=== PATIENT | male | born 1980 | race Caucasian/White ===

== ENCOUNTER → 2019-04-20 | Outpatient (CLI) | payer OTHER ==
[2019-04-20 18:35] LABS: BASOPHILS ABSOLUTE AUTO 0.05 K/mm3 (0.00-0.23); BASOPHILS PERCENT AUTO 1 % (0-2); EOSINOPHILS ABSOLUTE AUTO 0.15 K/mm3 (0.00-0.68); EOSINOPHILS PERCENT AUTO 2 % (0-6); Hemoglobin 14.4 g/dL (13.5-17.5); IMMATURE GRAN ABSOLUTE AUTO 0.04 K/mm3 (0.00-0.10); IMMATURE GRAN PERCENT AUTO 0 % (0-1); LYMPHOCYTES ABSOLUTE AUTO 2.71 K/mm3 (0.84-5.20); LYMPHOCYTES PERCENT AUTO 27 % (21-46); MONOCYTES ABSOLUTE AUTO 0.84 K/mm3 (0.16-1.47); MONOCYTES PERCENT AUTO 8 % (4-13); Mean Corpuscular HGB 29.2 pg (26.0-34.0); Mean Corpuscular HGB Conc 33.5 g/dL (31.5-36.5); Mean Corpuscular Volume 87 fL (80-100); Mean Platelet Volume 12.2 fL (9.1-12.4); NEUTROPHILS PERCENT AUTO 62 % (41-73); Platelet Count 176 K/mm3 (150-400); RDW Coefficient Variation 13.1 % (11.7-14.2); RDW Standard Deviation 41.3 fL (35.1-46.3); Red Blood Cell Count 4.93 M/mm3 (4.30-5.90); White Blood Cell Count 9.99 K/mm3 (4.00-11.30)
[2019-04-20 18:48] LABS: Alanine Aminotransfer (ALT/SGP 32 U/L (12-78); Albumin, Blood 3.5 g/dL (3.4-5.0); Albumin/Globulin Ratio 0.8 (0.8-1.8); Alk Phos 95 U/L (40-126); Anion Gap 11 mmol/L (6-16); Aspartate Aminotrans (AST/SGOT 21 U/L (12-37); Bilirubin, Total 0.2 mg/dL (0.1-1.0); Blood Urea Nitrogen 47 mg/dL (8-24); Bun/Creatinine Ratio 18.7 (12.0-20.0); CO2, Blood 22 mmol/L (21-32); Calcium, Blood 9.3 mg/dL (8.5-10.1); Chloride, Blood 108 mmol/L (98-108); Creatinine, Blood 2.52 mg/dL (0.60-1.20); Globulin, Blood 4.5 g/dL (2.2-4.0); Glomerular Filtration Rate 28 (60-); Glucose, Blood 100 mg/dL (70-99); Magnesium, Blood 1.4 mg/dL (1.6-2.4); Potassium, Blood 4.9 mmol/L (3.5-5.5); Sodium, Blood 141 mmol/L (136-145); Troponin I <0.017 ng/mL (0.000-0.040)
== END | disposition home or self-care (01) ==
LOC: LAB EV 18:30 → LAB SHORT 18:30
PROVIDERS: Physician Assistant Medical
DX: R06.00 Dyspnea, unspecified (principal)
CPT/HCPCS: 80053; 83735; 84484; 85025

== ENCOUNTER → 2020-08-21 | Outpatient (CLI) | payer OTHER ==
[2020-08-23 14:37] LABS: CORONAVIRUS (COVID19) CSH-NRL Negative (Negative)
== END | disposition home or self-care (01) ==
LOC: LAB EV 09:14 → LAB SHORT 09:14
PROVIDERS: Physician Assistant
DX: J06.9 Acute upper respiratory infection, unspecified (principal); Z20.828 Contact with and (suspected) exposure to other viral communicable diseases
CPT/HCPCS: U0003

== ENCOUNTER 2021-02-10 15:56 | Emergency (ER) | payer OTHER ==
[~2021-02-10] VITALS: Ht 180.3 cm; Wt 131.5 kg
[2021-02-10] MEDS ORDERED: AMOCLA875 PO (18:21)
== END 2021-02-10 18:38 | disposition home or self-care (01) ==
LOC: ER 15:56
DX: S51.852A Open bite of left forearm, initial encounter (principal); S51.851A Open bite of right forearm, initial encounter; Z91.013 Allergy to seafood; Z23 Encounter for immunization; W54.0XXA Bitten by dog, initial encounter
CPT/HCPCS: 12001; 73090; 73120; 90471; 90714; 99283-25; A9270

== ENCOUNTER 2022-03-24 11:31 | Emergency (ER) | payer OTHER ==
[~2022-03-24] VITALS: Ht 180.3 cm; Wt 135.2 kg
[~2022-03-24 11:31] MED LIST: AMOCLA875 PO
[2022-03-24 12:22] LABS: BASOPHILS ABSOLUTE AUTO 0.04 K/mm3 (0.00-0.23); BASOPHILS PERCENT AUTO 0 % (0-2); EOSINOPHILS ABSOLUTE AUTO 0.01 K/mm3 (0.00-0.68); EOSINOPHILS PERCENT AUTO 0 % (0-6); Hematocrit 49.9 % (37.0-53.0); Hemoglobin 16.1 g/dL (13.5-17.5); IMMATURE GRAN ABSOLUTE AUTO 0.04 K/mm3 (0.00-0.10); IMMATURE GRAN PERCENT AUTO 0 % (0-1); LYMPHOCYTES ABSOLUTE AUTO 0.49 K/mm3 (0.84-5.20); LYMPHOCYTES PERCENT AUTO 4 % (21-46); MONOCYTES ABSOLUTE AUTO 0.75 K/mm3 (0.16-1.47); MONOCYTES PERCENT AUTO 6 % (4-13); Mean Corpuscular HGB 29.3 pg (26.0-34.0); Mean Corpuscular HGB Conc 32.3 g/dL (31.5-36.5); Mean Corpuscular Volume 91 fL (80-100); Mean Platelet Volume 12.5 fL (9.1-12.4); NEUTROPHILS ABSOLUTE AUTO 10.95 K/mm3 (1.96-9.15); NEUTROPHILS PERCENT AUTO 89 % (41-73); Platelet Count 152 K/mm3 (150-400); RDW Coefficient Variation 12.7 % (11.7-14.2); RDW Standard Deviation 42.5 fL (35.1-46.3); White Blood Cell Count 12.28 K/mm3 (4.00-11.30)
[2022-03-24 12:30] LABS: Albumin, Blood 3.5 g/dL (3.4-5.0); Albumin/Globulin Ratio 0.8 (0.8-1.8); Bilirubin, Total 0.6 mg/dL (0.1-1.0); Bun/Creatinine Ratio 14.6 (12.0-20.0); Calcium, Blood 9.2 mg/dL (8.5-10.1); Creatinine, Blood 3.09 mg/dL (0.60-1.20); Globulin, Blood 4.3 g/dL (2.2-4.0); Potassium, Blood 4.8 mmol/L (3.5-5.5); Total Protein, Blood 7.8 g/dL (6.4-8.2)
[2022-03-24] MEDS ORDERED: LISI20 PO (15:28)
[2022-03-24] MEDS ORDERED: ALLOPURINOL100 M1 PO (15:28)
[2022-03-24] MEDS ORDERED: AMLODIPINE BES2.5 MG PO (15:28)
[2022-03-24] MEDS ORDERED: Simvastatin20 MG PO (15:28)
[2022-03-24] MEDS ORDERED: FUROSEMIDE20 MG PO (15:29)
[2022-03-24] MEDS ORDERED: VITAMIN D33000 UNIT (15:30)
[2022-03-24] MEDS ORDERED: FISH OIL 1,2001 EAC7 PO (15:30)
[2022-03-24] MEDS ORDERED: ONDA4ODT MM (17:17)
[2022-03-24 18:47] LABS: Bun/Creatinine Ratio 14.2 (12.0-20.0); Calcium, Blood 8.1 mg/dL (8.5-10.1); Creatinine, Blood 3.18 mg/dL (0.60-1.20)
[2022-03-24 19:38] LABS: Source, Urine Clean Catch
[2022-03-24 19:42] LABS: Appearance, Urine Clear (Clear); Bilirubin, Urine Neg (Neg); Blood, Urine 3+ (Neg); Color, Urine Yellow (P-Yellow); Glucose Qualitative, Urine Neg (Neg); Ketones, Urine Neg (Neg); Leukocyte Esterase, Urine Neg (Neg); Nitrite, Urine Neg (Neg); Protein, Urine 3+ (Neg); Specific Gravity, Urine 1.015 (1.003-1.022); Urobilinogen, Urine NORM (Normal)
[2022-03-24 20:07] LABS: Hyaline Casts 0-2 /lpf (0-2)
[2022-03-24 20:09] LABS: Bacteria Mod /hpf; Squamous Epithelial Cells Not Seen /hpf (Few)
== END 2022-03-24 22:25 | disposition home or self-care (01) ==
LOC: ER 11:31
PROVIDERS: Physician Assistant; Student in an Organized Health Care Education/Training Program
DX: K52.9 Noninfective gastroenteritis and colitis, unspecified (principal); E86.0 Dehydration; N17.9 Acute kidney failure, unspecified; I12.9 Hypertensive chronic kidney disease with stage 1 through stage 4 chronic kidney disease, or unspecified chronic kidney disease; N18.4 Chronic kidney disease, stage 4 (severe); Z91.013 Allergy to seafood; Z79.899 Other long term (current) drug therapy
CPT/HCPCS: 36415; 74176; 80048; 80053; 81001; 83605; 83690; 85025; 96360; 96361; 99284-25; A9270; J2405; J7030; J7120

== ENCOUNTER 2025-02-01 21:50 | Inpatient (IN) | payer MEDICARE, OTHER ==
[~2025-02-01] VITALS: Ht 175.3 cm; Wt 124.7 kg
[~2025-02-01 21:50] MED LIST changes: +ALLOPURINOL100 M1 PO; +AMLODIPINE BES2.5 MG PO; +FISH OIL 1,2001 EAC7 PO; +FUROSEMIDE20 MG PO; +LISI20 PO; +ONDA4ODT MM; +Simvastatin20 MG PO; +VITAMIN D33000 UNIT
[2025-02-01 22:12] LABS: BASOPHILS ABSOLUTE AUTO 0.05 K/mm3 (0.00-0.23); BASOPHILS PERCENT AUTO 1 % (0-2); EOSINOPHILS ABSOLUTE AUTO 0.06 K/mm3 (0.00-0.68); EOSINOPHILS PERCENT AUTO 1 % (0-6); Hematocrit 41.3 % (37.0-53.0); Hemoglobin 13.6 g/dL (13.5-17.5); IMMATURE GRAN ABSOLUTE AUTO 0.02 K/mm3 (0.00-0.10); IMMATURE GRAN PERCENT AUTO 0 % (0-1); LYMPHOCYTES ABSOLUTE AUTO 2.39 K/mm3 (0.84-5.20); LYMPHOCYTES PERCENT AUTO 22 % (21-46); MONOCYTES ABSOLUTE AUTO 0.79 K/mm3 (0.16-1.47); MONOCYTES PERCENT AUTO 7 % (4-13); Mean Corpuscular HGB 29.6 pg (26.0-34.0); Mean Corpuscular HGB Conc 32.9 g/dL (31.5-36.5); Mean Corpuscular Volume 90 fL (80-100); Mean Platelet Volume 11.5 fL (9.1-12.4); NEUTROPHILS ABSOLUTE AUTO 7.67 K/mm3 (1.96-9.15); NEUTROPHILS PERCENT AUTO 70 % (41-73); Platelet Count 209 K/mm3 (150-400); RDW Coefficient Variation 12.6 % (11.7-14.2); RDW Standard Deviation 41.2 fL (35.1-46.3); Red Blood Cell Count 4.59 M/mm3 (4.30-5.90); White Blood Cell Count 10.98 K/mm3 (4.00-11.30)
[2025-02-01 22:43] LABS: Albumin, Blood 3.8 g/dL (3.4-5.0); Albumin/Globulin Ratio 0.9 (0.8-1.8); Bilirubin, Total 0.3 mg/dL (0.1-1.0); Bun/Creatinine Ratio 9.8 (12.0-20.0); Calcium, Blood 9.5 mg/dL (8.5-10.1); Creatinine, Blood 8.35 mg/dL (0.60-1.20); Globulin, Blood 4.2 g/dL (2.2-4.0)
[2025-02-02] MEDS ORDERED: CefTRIAXone Sodium 2,000 MG in NS 50 ML IV ONE (01:10)
[2025-02-02] MEDS ORDERED: Azithromycin 500 MG in NS 250 ML IV ONE (01:10)
[2025-02-02 04:58] LABS: BASOPHILS ABSOLUTE AUTO 0.05 K/mm3 (0.00-0.23); BASOPHILS PERCENT AUTO 0 % (0-2); EOSINOPHILS ABSOLUTE AUTO 0.11 K/mm3 (0.00-0.68); EOSINOPHILS PERCENT AUTO 1 % (0-6); Hematocrit 38.1 % (37.0-53.0); Hemoglobin 12.5 g/dL (13.5-17.5); IMMATURE GRAN ABSOLUTE AUTO 0.03 K/mm3 (0.00-0.10); IMMATURE GRAN PERCENT AUTO 0 % (0-1); LYMPHOCYTES ABSOLUTE AUTO 2.59 K/mm3 (0.84-5.20); LYMPHOCYTES PERCENT AUTO 21 % (21-46); MONOCYTES ABSOLUTE AUTO 1.04 K/mm3 (0.16-1.47); MONOCYTES PERCENT AUTO 9 % (4-13); Mean Corpuscular HGB 30.2 pg (26.0-34.0); Mean Corpuscular HGB Conc 32.8 g/dL (31.5-36.5); Mean Corpuscular Volume 92 fL (80-100); NEUTROPHILS ABSOLUTE AUTO 8.34 K/mm3 (1.96-9.15); NEUTROPHILS PERCENT AUTO 69 % (41-73); Platelet Count 190 K/mm3 (150-400); RDW Coefficient Variation 12.7 % (11.7-14.2); RDW Standard Deviation 42.7 fL (35.1-46.3); Red Blood Cell Count 4.14 M/mm3 (4.30-5.90); White Blood Cell Count 12.16 K/mm3 (4.00-11.30)
[2025-02-02 05:53] LABS: Albumin, Blood 3.4 g/dL (3.4-5.0); Albumin/Globulin Ratio 0.9 (0.8-1.8); Bilirubin, Total 0.2 mg/dL (0.1-1.0); Bun/Creatinine Ratio 9.7 (12.0-20.0); Calcium, Blood 8.7 mg/dL (8.5-10.1); Creatinine, Blood 8.35 mg/dL (0.60-1.20); Globulin, Blood 3.8 g/dL (2.2-4.0); Potassium, Blood 4.2 mmol/L (3.5-5.5); Total Protein, Blood 7.2 g/dL (6.4-8.2)
[2025-02-02] MEDS ORDERED: Heparin Sodium,Porcine 5,000 UNIT/0.5 ML SDV SC SCH (09:00)
[2025-02-02 09:21] LABS: International Normalized Ratio 1.08; Prothrombin Time Results 11.5 Sec (9.7-11.5)
[2025-02-02 12:28] VITALS: BP 145/111
[2025-02-02] MEDS ORDERED: GABA100 PO (12:28)
[2025-02-02] MEDS ORDERED: ROPI1 PO (12:28)
[2025-02-02] MEDS ORDERED: LOSA50 PO (12:29)
[2025-02-02] MEDS ORDERED: FURO80 PO (12:29)
[2025-02-02] MEDS ORDERED: CALCITRIOL0.5 MC1 PO (12:30)
[2025-02-02] MEDS ORDERED: rOPINIRole HCl 1 MG Tab PO ONE (12:40)
--- NOTE | 2025-02-02 12:41 | NUR ---
ADMIT REPORT RECEVIED FROM ER. PT ARRIVED VIA W/C ON RA. RESP EVENA ND UNLABORED. SAT 91%. HR 80'S. PT INSISTED ON BEING ON RA. THAT HE WAS FINE NOW. THORACENTESIS SCHEDULED FOR 1400. PT SHORTLY AFTER BECAME MORE LABORIOUS. REPLACED OXYGEN AT 2L N/C. PT FELT BETTER. MED/REC COMPLETED. CALLED DR MATTSON TO REQUEST MEDICATION ORDERS. CARE ONGOING.
--- NOTE | 2025-02-02 14:11 | NUR ---
THORACENTESIS PT TANSPORTED TI IMAGING FOR THORACENTESIS. AT BEDSIDE. CARE ONGOING.
[2025-02-02 14:50] VITALS: BP 140/88
--- NOTE | 2025-02-02 14:51 | NUR ---
POST THORACENTESIS PT RETURNED VIA W/C. PT ALERT AND DENIED DISCOMFORT. VOICE QUALITY STRONG AND CLEAR. TRANSFERED SELF TO BED. RIGHT POSTERIOR BANDAIDE CD&I. NO SWELLING OR CREPTUS NOTED. PT DENIED TENDERNESS TO PALAPTION. RIGHT LUNG FIELD DIMISHED. PT NOTED TO HAVE A SLIGHT COUGH. AT BEDSIDE. CARE ONGOING.
[2025-02-02 15:00] LABS: Automated BF WBC Count 0.124 K/mm3 (0-999)
[2025-02-02 15:17] LABS: pH, Body Fluid 6.1
[2025-02-02 15:21] LABS: Albumin, Body Fluid 0.1 g/dL; Glucose, Body Fluid 251 mg/dL; Lactate Dehydrogenase, Body Fl 18 U/L; Protein, Body Fluid 0.2 g/dL; Triglycerides, Body Fluid 4 mg/dL
[2025-02-02 15:25] LABS: Body Fluid WBC Count 124 /mm3 (0-999); RBC Count, Body Fluid 5 /mm3 (0-0)
--- NOTE | 2025-02-02 15:48 | NUR ---
CALL FROM DR TAN. CONFIRMED PATIENT NAME. VERBAL ORDER TO PUT IN ORDER FOR STAT CT CHEST, ABD AD PELVIS. NUCLEAR CONTRACT IN PD BAG PER RADIOLOGIST. DISCUSSED c DR. RAY TO R/O DIAPHGRAMATIC LEAK TONIGHT. PLEASE ENSURE PD NURSE AVAILABLE FOR THIS.
[2025-02-02 15:55] LABS: Total Cell Count, Body Fluid 100
[2025-02-02 15:56] LABS: Color, Body Fluid No color (None-Yellow)
[2025-02-02 15:57] LABS: Appearance, Body Fluid Clear (Clear)
--- NOTE | 2025-02-02 15:57 | NUR ---
SPOKE WITH ERIK, LATCHER. SHE STATED THIS IS NOT SOMETHING THEY TYPICALLY DO. ERIK IS CALLING DR. TAN TO TRY AND CONFIRM.
--- NOTE | 2025-02-02 16:17 | NUR ---
LEFT MESSAGE c NUCLEAR MED REQUESTING CALL BACK: DO WE NEED NEED TO PLACE NUKE MED Rx FOR CONTRAST IN PD FLUID INSTEAD OF IMAGING Rx? AWAITING CALL BACK.
--- NOTE | 2025-02-02 16:20 | NUR ---
IMAGING/PROCEDURE UNABLE TO BE DONE TODAY DUE TO NEEDING TO Rx SPECIFIC NUKE MED DOSE. DR. MATTSON PRESENT AT TIME OF MESSAGE AND IS AWARE. DR. TAN MADE AWARE; REQUESTED TO ENSURE PD NURSE AND BEDSIDE NURSE BE READY IN MORNING FOR THIS. NURSES NOTIFIED.
[2025-02-02 16:55] VITALS: BP 140/98
[2025-02-02] MEDS ORDERED: Polyethylene Glycol 3350 17 gm PO PRN (16:55)
--- NOTE | 2025-02-02 17:32 | NUR ---
CT SCAN DR TAN ORDERED A CT SCAN THIS EVENING. ORDER HAS BEEN CANCELED TO CHANGE TO A NUC MED SCAN. DIALYSIS STAFF HAS BEEN NOTIFIED OF NUC MED SCAN TOMORROW. KAMRAN FROM NUC MED IS GOING TO WORK WITH DIALYSIS TO INFUSE INTO PD CATHETER IN THE [place]. NEED TO ORDER CONSTRAST MEDIA WITH DELIVERY TOMORROW. CARE ONGOING.
--- NOTE | 2025-02-02 17:34 | NUR ---
SHIFT NOTE PT AWAKE AND AWARE. AT BEDSIDE. RIGHT POSTERIOR TAP SITE CD&I. PT AWARE OF NUC MED TOMORROW. NO PD TONIGHT PER DR TNA. VSS. RESPIRATIONS EVEN AND UNLABORED. PT REQUIRING 2L N/C. VOICE CLEAR AND STRONG. NO COUGHING OR COMPLAINT OF SHORTNESS OF BREATH. DENIED CHEST PAIN/SORENESS. CARE ONGOING.
[2025-02-02] MEDS ORDERED: Furosemide 10 MG/ML 10ML Vial IV ONE (19:40)
[2025-02-02 19:47] VITALS: BP 140/99
[2025-02-02] MEDS ORDERED: Gabapentin 100 MG Cap PO SCH (21:00)
--- NOTE | 2025-02-03 03:48 | NUR ---
SHIFT SUMMARY PATIENT HAS APPEARED TO SLEEP COMFORTABLY DURING THE NIGHT. VITAL SIGNS HAVE BEEN STABLE. PATIENT IS ORIENTED X4. CONTINUOUS PULSE OX IS IN PLACE. CALL LIGHT IS WITHIN REACH. SAFETY PRECAUTIONS ARE BEING MAINTAINED.
[2025-02-03 03:58] VITALS: BP 133/94
[2025-02-03 05:51] LABS: Hematocrit 35.5 % (37.0-53.0); Hemoglobin 11.5 g/dL (13.5-17.5)
[2025-02-03 06:20] LABS: Magnesium, Blood 1.7 mg/dL (1.6-2.4)
[2025-02-03 06:33] LABS: Albumin, Blood 3.1 g/dL (3.4-5.0); Anion Gap 14 mmol/L (3-11); Blood Urea Nitrogen 87 mg/dL (8-24); Bun/Creatinine Ratio 9.6 (12.0-20.0); CO2, Blood 22 mmol/L (21-32); Calcium, Blood 9.2 mg/dL (8.5-10.1); Chloride, Blood 108 mmol/L (98-108); Glomerular Filtration Rate 7 (60-); Glucose, Blood 95 mg/dL (70-99); Phosphorus, Blood 7.9 mg/dL (2.5-4.9); Potassium, Blood 4.1 mmol/L (3.5-5.5); Sodium, Blood 140 mmol/L (136-145)
--- NOTE | 2025-02-03 06:39 | NUR ---
CRITICAL LAB REPORTED CRITICAL CREATININE LEVEL OF 9.[address] TAN.
[2025-02-03 07:23] VITALS: BP 140/103
--- NOTE | 2025-02-03 07:25 | NUR ---
ASSUMPTION OF CARE: ASSUMED CARE OF PATIENT. AWAKE DURING SHIFT CHANGE REPORT. LYING IN BED, LOOKING AT HIS CELL PHONE. BREATHING EVEN AND UNLABORED. ROOM AIR. BED IN LOWEST POSITION. CALL LIGHT WITHIN REACH. NO ACUTE NEEDS.
[2025-02-03] MEDS ORDERED: CalcitrioL 0.5 MCG Cap PO SCH (09:00)
[2025-02-03] MEDS ORDERED: Furosemide 10 MG/ML 4ML Vial IV SCH (09:00)
[2025-02-03] MEDS ORDERED: AmLODIPine Besylate 5 MG Tab PO SCH (09:00)
[2025-02-03] MEDS ORDERED: Allopurinol 100 MG Tab PO SCH (09:00)
--- NOTE | 2025-02-03 11:22 | NUR ---
TRANSPORT TO BEDSIDE TO TAKE PATIENT TO US-GUIDED THORACENTESIS.
[2025-02-03] MEDS ORDERED: rOPINIRole HCl 1 MG Tab PO SCH (12:00)
[2025-02-03] MEDS ORDERED: Losartan Potassium 50 MG Tab PO SCH (12:00)
[2025-02-03 13:43] VITALS: BP 145/103
--- NOTE | 2025-02-03 14:06 | NUR ---
PATIENT WONDERING IF HE HAS TIME FOR SHOWER BEFORE PROCEDURE: PER SALES AGENT PROTECTIVE SERVICE, HE HAS TIME TO SHOWER. IV WRAPPED FOR SHOWER.
--- NOTE | 2025-02-03 15:33 | NUR ---
DR TAN IN; WANTED TO ENSURE PATIENT ABLE TO GET PERMACATH PLACED TODAY. CALL TO AUTOTRANSFUSIONIST; UNAVAILABLE AND WILL CALL BACK.
[2025-02-03 16:07] VITALS: BP 136/99
--- NOTE | 2025-02-03 17:52 | NUR ---
END OF SHIFT SUMMARY: A&Ox4. PLEASANT AND COOPERATIVE WITH CARE. CALLS APPROPRIATELY AND IS ABLE TO ADVOCATE NEEDS EFFECTIVELY. CONTINENT OF BOWEL AND BLADDER. AMBULATES INDEPENDENTLY. MEDS WHOLE c FLUIDS. NO C / O PAIN OR DISCOMFORT. US-GUIDED THORACENTESIS DONE TODAY c 1500mL FLUID REMOVAL. F/U CXR NEGATIVE FOR PNEUMOTHORAX; MODERATE AMOUNT PLEURAL FLUID NOTED. NUCLEAR MED STUDY DONE TO R/O DIAPHRAGMATIC LEAK; RESULTS PENDING. PERM CATH PLANNED FOR AM. DAY #3 WITHOUT PD D/T LACK OF ACCESS. BED IN LOWEST POSITION, CALL LIGHT WITHIN REACH, ALL NEEDS MET. REPORT TO ONCOMING NURSE.
--- NOTE | 2025-02-03 18:34 | NUR ---
NUCLEAR MED DYE STUDY ORDERED TO R/O LEAKAGE OF PERITONEAL FLUID. 1.5% ULTRABAG SET WARMED ON HEATER. PD CATHETER AESEPTICALLY CONNECTED TO ULTRABAG AND 1 LITER FLUID INSTILLED IN PERITONEUM. THEN, ULTRABAG DISCONNECTED AND NUC MED INSTILLED 10ML CONTRAST MEDIUM INTO CATHETER. ULTRABAG THEN RECONNECTED AND ADITIONAL 1 LITER FLUID INSTILLED. CATHETER THEN CAPPED WITH NEW MINICAP AND PATIENT TAKEN TO IMAGING FOR MULTIPLE VIEWS. WHEN COMPLETE, PT DRAINED TO DRY AND CAPPED WITH ANOTHER NEW MINCAP. FLUID TRANSFERED TO [employer] TECH FOR DISPOSAL. PT REORTED SOME ABD SORENESS, OTHERWISE TOLERATED PROCEDURE WELL.
[2025-02-03 19:20] VITALS: BP 131/96
[2025-02-04] VITALS (19 sets, daily range): BP systolic 86–145; BP diastolic 60–102
--- NOTE | 2025-02-04 04:36 | NUR ---
SHIFT SUMMARY ADMITTED FOR SOB AND R PLEURAL EFFUSION. S/P 2 THORACENTESES. NM SCAN CONFIRMED DIAPHRAGMATIC LEAK. FULL CODE. ESRD ON PERITONEAL DIALYSIS. NO DIALYSIS IN 3 DAYS. TELE: NSR @ 93 BPM. CREATININE 9.10. GFR 7. A&OX4, INDEPENDENT, CONTINENT, AMBULATORY. PLAN FOR PERMACATH PLACEMENT TODAY FOR HD.
--- NOTE | 2025-02-04 04:54 | NUR ---
SAFETY ANALYST/PRECEPTOR I HAVE READ THIS SAFETY ANALYST'S NOTE/SHIFT SUMMARY AND I AGREE WITH IT'S CONTENTS.
[2025-02-04 05:20] LABS: Hematocrit 34.9 % (37.0-53.0); Hemoglobin 11.8 g/dL (13.5-17.5)
[2025-02-04 06:05] LABS: Magnesium, Blood 1.7 mg/dL (1.6-2.4)
[2025-02-04 06:09] LABS: Albumin, Blood 2.9 g/dL (3.4-5.0); Anion Gap 15 mmol/L (3-11); Blood Urea Nitrogen 99 mg/dL (8-24); CO2, Blood 22 mmol/L (21-32); Calcium, Blood 8.9 mg/dL (8.5-10.1); Chloride, Blood 107 mmol/L (98-108); Creatinine, Blood 8.98 mg/dL (0.60-1.20); Glomerular Filtration Rate 7 (60-); Glucose, Blood 118 mg/dL (70-99); Phosphorus, Blood 9.1 mg/dL (2.5-4.9); Potassium, Blood 3.7 mmol/L (3.5-5.5); Sodium, Blood 140 mmol/L (136-145)
--- NOTE | 2025-02-04 08:08 | NUR ---
AM NOTE: CALLED [facility] REGARDING IR CONSULT PLACED 02/04/24 AND TO VERIFY THE PLAN OF CARE. THIS RN SPOKE TO JOSHUA VIA PHONE AT 0803. PER JOSHUA PATIENT ON THE LIST FOR PERM CATH PLACEMENT SOMETIMES TODAY AND PATIENT SHOULD NPO AT SINCE [place]. PATIENT PLACED NPO AT 0805 AND INFORM c PLAN OF CARE. PATIENT VERBALIZED UNDERSTANDING AND NO FURTHER QUESTIONS AT THIS TIME.
[2025-02-04] MEDS ORDERED: NS 500 ML IV ONE (09:37)
[2025-02-04] MEDS ORDERED: Heparin Sodium 1000 Units/ML 10ML MDV ONE (09:40)
[2025-02-04] MEDS ORDERED: NS 250 ML IV ONE (09:40)
[2025-02-04] MEDS ORDERED: Midazolam HCl 1MG / ML 2ML Vial ONE (09:54)
[2025-02-04] MEDS ORDERED: FentaNYL Citrate 50 MCG/ML 2 ML Injection ONE (09:54)
[2025-02-04] MEDS ORDERED: Heparin Sodium 10,000 Units/ML 1ML MDV ONE (10:16)
[2025-02-04] MEDS ORDERED: OxyCODONE HCL 5 MG TAB PO PRN (15:25)
[2025-02-04] MEDS ORDERED: Acetaminophen 500 MG Tab PO PRN (15:25)
[2025-02-04] MEDS ORDERED: Melatonin 5 MG Tablet PO PRN (16:35)
--- NOTE | 2025-02-04 18:09 | NUR ---
SHIFT SUMMARY: PATIENT A/OX4, PLEASANT AND COOPERATIVE c CARE. PATIENT HAD HIS PERM CATH PLACED TO R UPPER CHEST WALL TODAY, DRESSING C/D/I TO SITE. PATIENT WAS DIALYZE TODAY c 900 MLS NET FLUID REMOVED. PATIENT REPORTS PAIN TO PERM CATH SITE, DR. MATTSON WAS NOTIFIED AND ROUND ON PATIENT. PATIENT MEDICATED FOR PAIN PER EMAR c GOOD EFFECT. PATIENT REPORTS ABDOMINAL CRAMPS "COMES AND GOES" STARTED DURING DIALYSIS AND DIZZINESS WHEN AMBULATING TO BATHROOM THIS PM. VSS. PATIENT HAS GOOD APPETITE, CONTINENT OF BLADDER, USES URINAL/AMBULATES TO BATHROOM INDEPENDENTLY. PATIENT RECEIVED SCHEDULED MEDS PER EMAR. VITAL SIGNS REVIEWED. PATIENT SPOUSE AT BEDSIDE T/O THE DAY. PATIENT HAS HAD NO COMPLAINTS OR DENIES NEW CONCERNED THIS SHIFT. CALL LIGHT IN REACH.
[2025-02-05] VITALS (20 sets, daily range): BP systolic 116–142; BP diastolic 85–99
[2025-02-05 05:16] LABS: Hematocrit 35.6 % (37.0-53.0); Hemoglobin 11.8 g/dL (13.5-17.5)
--- NOTE | 2025-02-05 05:16 | NUR ---
SHIFT SUMMARY: PT IS ALERT AND ORIENTED. PT IS CALM AND COOPERATIVE WITH CARE. PT CALL APPROPRIATELY. PT IS INDEPENDENT IN THE ROOM. PT SLEPT MUCH OF THE NIGHT WHEN NOT DISTURBED. PT DENIES PAIN, NAUSEA, VOMITING, AND SOB. NO ACUTE CHANGES OVERNIGHT. POSS DC TODAY. WILL REPORT TO DAY NURSE.
[2025-02-05 05:55] LABS: Magnesium, Blood 1.8 mg/dL (1.6-2.4)
[2025-02-05 06:02] LABS: Albumin, Blood 3.1 g/dL (3.4-5.0); Anion Gap 12 mmol/L (3-11); Blood Urea Nitrogen 76 mg/dL (8-24); Bun/Creatinine Ratio 9.5 (12.0-20.0); CO2, Blood 27 mmol/L (21-32); Calcium, Blood 9.5 mg/dL (8.5-10.1); Chloride, Blood 102 mmol/L (98-108); Creatinine, Blood 7.96 mg/dL (0.60-1.20); Glomerular Filtration Rate 8 (60-); Glucose, Blood 119 mg/dL (70-99); Potassium, Blood 3.7 mmol/L (3.5-5.5); Sodium, Blood 137 mmol/L (136-145)
[2025-02-05 06:03] LABS: Phosphorus, Blood 8.9 mg/dL (2.5-4.9)
--- NOTE | 2025-02-05 10:50 | NUR ---
OUT OF ROOM NOTE: PATIENT LEFT THE ROOM VIA BED AT THIS TIME TO DIALYSIS.
[2025-02-05] MEDS ORDERED: Losartan Potassium 25 MG Tab PO SCH (12:00)
[2025-02-05] MEDS ORDERED: MELATONIN5 M1 PO (15:08)
--- NOTE | 2025-02-05 15:45 | NUR ---
SHIFT/DISCHARGE SUMMARY: PATIENT A/OX4, PLEASANT AND COOPERATIVE c CARE. PATIENT DENIES SOB, N/V, CP/PRESSURE AND DIZZINESS. PATIENT WAS DIALYZE TODAY c 1L FLUID REMOVED. HD PERM CATH TO R UPPER CHEST WALL, DRESSING C/D/I. PATIENT HAS GOOD APPETITE, CONTINENT OF BLADDER AND AMBULATES TO BATHROOM INDEPENDENTLY. PATIENT RECEIVED SCHEDULED MEDS PER EMAR. VITAL SIGNS REVIEWED. PIV DC'D. PATIENT DISCHARGE HOME. DISCHARGE INSTRUCTIONS PACKET GIVEN TO PATIENT. PATIENT EDUCATED ON ADMITTING DX'S OF END STAGE RENAL DISEASSE, SCHEDULED DIALYSIS, NEW RX AND TO F/U c PCP. PATIENT VERBALIZED UNDERSTANDING AND NO FURTHER QUESTIONS. PATIENT SPOUSE REQUESTED NOT TO SEND NEW RX OF MELATONIN TO PHARMACY, PER SPOUSE "HE STILL HAVE AVAILABLE AT HOME." ALL PERSONAL BELONGINGS WERE HOME c THE PATIENT. PATIENT LEFT THE ROOM AT 1544, TRANSPORTED VIA WHEELCHAIR BY [facility]ELIX TO PATIENT ENTRANCE.
[2025-02-06] MEDS ORDERED: Furosemide 80 MG Tab PO SCH (09:00)
== END 2025-02-05 16:02 | disposition home or self-care (01) | DRG 919 ==
LOC: ER 21:50 → ERHOLD 21:51 → MEDS 21:51
PROVIDERS: Emergency Medicine; Internal Medicine Nephrology; Student in an Organized Health Care Education/Training Program; ADMIT Internal Medicine
PROC: 0W993ZZ Drainage of Right Pleural Cavity, Percutaneous Approach (ICD-10-PCS; principal; 2025-02-02)
PROC: 0W993ZZ Drainage of Right Pleural Cavity, Percutaneous Approach (ICD-10-PCS; 2025-02-03)
PROC: 5A1D70Z Performance of Urinary Filtration, Intermittent, Less than 6 Hours Per Day (ICD-10-PCS; 2025-02-04)
PROC: 0JH60XZ Insertion of Tunneled Vascular Access Device into Chest Subcutaneous Tissue and Fascia, Open Approach (ICD-10-PCS; 2025-02-04)
PROC: 02HV33Z Insertion of Infusion Device into Superior Vena Cava, Percutaneous Approach (ICD-10-PCS; 2025-02-04)
PROC: B5181ZA Fluoroscopy of Superior Vena Cava using Low Osmolar Contrast, Guidance (ICD-10-PCS; 2025-02-04)
DX: T85.631A Leakage of intraperitoneal dialysis catheter, initial encounter (principal); N18.6 End stage renal disease; J98.11 Atelectasis; J90 Pleural effusion, not elsewhere classified; I12.0 Hypertensive chronic kidney disease with stage 5 chronic kidney disease or end stage renal disease; Z68.41 Body mass index [BMI] 40.0-44.9, adult; N25.81 Secondary hyperparathyroidism of renal origin; K21.9 Gastro-esophageal reflux disease without esophagitis; M10.9 Gout, unspecified; E78.5 Hyperlipidemia, unspecified; E87.70 Fluid overload, unspecified; G25.81 Restless legs syndrome; D63.1 Anemia in chronic kidney disease; E66.01 Morbid (severe) obesity due to excess calories; E83.39 Other disorders of phosphorus metabolism; Z79.811 Long term (current) use of aromatase inhibitors; Z91.013 Allergy to seafood; Z79.899 Other long term (current) drug therapy; Z99.2 Dependence on renal dialysis; Y84.6 Urinary catheterization as the cause of abnormal reaction of the patient, or of later complication, without mention of misadventure at the time of the procedure
CPT/HCPCS: 32555; 36415; 71045; 71046; 71250; 76937; 78299; 80053; 80069; 82042; 82945; 82947; 83605; 83615; 83735; 83880; 83986; 84145; 84157; 84478; 84484; 85014; 85018; 85025; 85610; 87040; 87070; 87075; 87205; 87252; 88108; 88305; 89051; 93005; 93010; 94762; 96365; 96367; 96375; 96376; 99152; 99153; 99285-25; A9270; A9540; C1750; C1769; G0378; J0456; J0696; J1644; J1940; J2250; J3010; J7040; J7050

== ENCOUNTER 2025-03-09 09:56 | Day surgery (SDC) | payer OTHER ==
[~2025-03-09] VITALS: Ht 175.3 cm; Wt 123.4 kg
[~2025-03-09 09:56] MED LIST changes: +CALCITRIOL0.5 MC1 PO; +FURO80 PO; +GABA100 PO; +LOSA50 PO; +MELATONIN5 M1 PO; +ROPI1 PO; +VITAMIN D5000 UNIT PO; +ZOCOR20 MG PO
[2025-03-09 12:19] VITALS: BP 138/105
[2025-03-09] MEDS ORDERED: NS 1,000 ML IV ONE (12:35)
[2025-03-09] MEDS ORDERED: Lidocaine HCl 2% 20 ML MDV ONE (12:35)
[2025-03-09] MEDS ORDERED: Heparin Sodium 1000 Units/ML 10ML MDV ONE ×2 (12:35→12:43)
[2025-03-09] MEDS ORDERED: NS 500 ML IV ONE (12:39)
[2025-03-09] MEDS ORDERED: Midazolam HCl 1MG / ML 2ML Vial ONE (12:40)
[2025-03-09] MEDS ORDERED: FentaNYL Citrate 50 MCG/ML 2 ML Injection ONE (12:40)
[2025-03-09] MEDS ORDERED: Clopidogrel Bisulfate 75 MG Tab ONE (13:52)
[2025-03-09 13:57] VITALS: BP 112/76
[2025-03-09 14:00] VITALS: BP 93/77
[2025-03-09 14:15] VITALS: BP 99/72
[2025-03-09 14:30] VITALS: BP 117/91
[2025-03-09] MEDS ORDERED: Acetaminophen 325 MG TABLET ONE (14:34)
[2025-03-09] MEDS ORDERED: Acetaminophen 325 MG TABLET PO ONE (14:45)
[2025-03-09] MEDS ORDERED: CLOP75 PO (14:52)
[2025-03-09 15:00] VITALS: BP 114/84
--- NOTE | 2025-03-09 15:17 | NUR ---
PATIENT TO RECOVERY ROOM AT 1355 S/P AV FISTULA CREATION. PT AWAKE AND ALERT, C/O ACHE TO LEFT AC 5/10. INITIALLY NO THRILL FELT, DR FLORES AWARE, BUT FAINT THRILL FELT 30 MIN INTO RECOVERY. LOUD BRUIT HEARD POST OP. DR FLORES IN TO SEE PT POST PROCEDURE TO UPDATE PT AND PT'S . PT HYPOTENSIVE W MAP >65. PT DENIES DIZZINESS WORSE THAN BASELINE. (PT HAD DIALYSIS TODAY AND C/O DIZZINESS DURING ADMIT). PT ABLE TO EAT AND DRINK W/O ISSUES. BP IMPROVED PRIOR TO DISCHARGE. TYLENOL ORDERED AND GIVEN FOR ACHE. PLAVIX 75MG PO DAILY FAXED TO [facility] PER PT REQUEST. AT 1512 DR FLORES CALLED R/T NO LONGER TO FEEL FAINT THRILL BUT BRUIT PRESENT. OKAY TO DISCHARGE PATIENT HOME PER DR FLORES. VERBAL AND WRITTEN DISCHARGE INSTRUCTIONS GIVEN TO PT AND PT'S WITH CLEAR UNDERSTANDING. NO IV/BP BRACELET TO LEFT WRIST. PT DC'D HOME IN STABLE CONDITION AT 1530. PT ESCORTED OUT VIA WHEELCHAIR AND RELEASED TO PT'S .
== END 2025-03-09 23:00 | disposition home or self-care (01) ==
LOC: MHTC 09:56
DX: I12.0 Hypertensive chronic kidney disease with stage 5 chronic kidney disease or end stage renal disease (principal); N18.6 End stage renal disease; Z79.899 Other long term (current) drug therapy; Z99.2 Dependence on renal dialysis
CPT/HCPCS: 76937; 99152; 99153; A9270; C1725; C1769; C1889; C1894; J1644; J2250; J3010; J7030; J7040

== ENCOUNTER 2025-05-18 08:50 | Day surgery (SDC) | payer OTHER ==
[~2025-05-18] VITALS: Ht 175.3 cm; Wt 125.6 kg
[2025-05-18] VITALS (7 sets, daily range): BP systolic 121–160; BP diastolic 78–108
[~2025-05-18 08:50] MED LIST changes: +CLOP75 PO
[2025-05-18 09:48] LABS: BASOPHILS ABSOLUTE AUTO 0.04 K/mm3 (0.00-0.23); BASOPHILS PERCENT AUTO 1 % (0-2); EOSINOPHILS ABSOLUTE AUTO 0.05 K/mm3 (0.00-0.68); EOSINOPHILS PERCENT AUTO 1 % (0-6); Hematocrit 31.1 % (37.0-53.0); Hemoglobin 10.4 g/dL (13.5-17.5); IMMATURE GRAN ABSOLUTE AUTO 0.02 K/mm3 (0.00-0.10); IMMATURE GRAN PERCENT AUTO 0 % (0-1); LYMPHOCYTES ABSOLUTE AUTO 2.15 K/mm3 (0.84-5.20); LYMPHOCYTES PERCENT AUTO 29 % (21-46); MONOCYTES ABSOLUTE AUTO 0.71 K/mm3 (0.16-1.47); MONOCYTES PERCENT AUTO 9 % (4-13); Mean Corpuscular HGB Conc 33.4 g/dL (31.5-36.5); Mean Corpuscular Volume 94 fL (80-100); NEUTROPHILS ABSOLUTE AUTO 4.56 K/mm3 (1.96-9.15); NEUTROPHILS PERCENT AUTO 61 % (41-73); NRBC ABSOLUTE 0.00 K/mm3 (0.00-0.02); NRBC Auto 0.0 /100 WBC (0.0-0.2); Platelet Count 167 K/mm3 (150-400); RDW Coefficient Variation 12.2 % (11.7-14.2); RDW Standard Deviation 42.2 fL (35.1-46.3)
[2025-05-18 10:04] LABS: Prothrombin Time Results 11.5 Sec (9.7-11.5)
[2025-05-18 10:38] LABS: Alanine Aminotransfer (ALT/SGP 27.0 U/L (12-78); Albumin, Blood 3.3 g/dL (3.4-5.0); Albumin/Globulin Ratio 0.8 (0.8-1.8); Anion Gap 11.0 mmol/L (3-11); Aspartate Aminotrans (AST/SGOT 17.0 U/L (12-37); Bilirubin, Total 0.4 mg/dL (0.1-1.0); Blood Urea Nitrogen 60.0 mg/dL (8-24); CO2, Blood 28.0 mmol/L (21-32); Calcium, Blood 9.2 mg/dL (8.5-10.1); Chloride, Blood 103.0 mmol/L (98-108); Creatinine, Blood 8.73 mg/dL (0.60-1.20); Globulin, Blood 3.9 g/dL (2.2-4.0); Glucose, Blood 94.0 mg/dL (70-99); Potassium, Blood 4.4 mmol/L (3.5-5.5); Sodium, Blood 138.0 mmol/L (136-145); Total Protein, Blood 7.2 g/dL (6.4-8.2)
[2025-05-18] MEDS ORDERED: Verapamil HCL 2.5 MG/ML 2ML Injection ONE (11:26)
[2025-05-18] MEDS ORDERED: Nitroglycerin 2 MG/20 ML BTL ONE (11:27)
[2025-05-18] MEDS ORDERED: NS 1,000 ML IV ONE ×2 (11:27→12:03)
[2025-05-18] MEDS ORDERED: Heparin Sodium 1000 Units/ML 10ML MDV ONE ×2 (11:27→13:58)
[2025-05-18] MEDS ORDERED: FentaNYL Citrate 50 MCG/ML 2 ML Injection ONE ×3 (12:03→13:29)
[2025-05-18] MEDS ORDERED: Midazolam HCl 1MG / ML 2ML Vial ONE (12:03)
[2025-05-18] MEDS ORDERED: CeFAZolin Sodium 2,000 MG VIAL ONE (12:57)
[2025-05-18] MEDS ORDERED: NS 100 ML IV ONE (12:58)
[2025-05-18] MEDS ORDERED: NS 500 ML IV ONE (13:58)
--- NOTE | 2025-05-18 15:46 | NUR ---
pt back to recovery from lab. pt a&o. dr sullivan at bedside dsicussing procedure w/ pt and future plan of care.
--- NOTE | 2025-05-18 16:29 | NUR ---
TR BAND DEFLATION INTIATED.
--- NOTE | 2025-05-18 16:33 | NUR ---
TR BAND DEFLATED, NO OOZING OR SWELLING NOTED.
--- NOTE | 2025-05-18 17:07 | NUR ---
IV REMOVED CATHTER INTACT. PT ABLE TO GET SELF DRESSED WITH OUT DIFFICULTY. PT. DISHCARGE INSTRUCTIONS AND FOLLOW UP APPOINTMENT REVIEWED. LUE DRESSINGS UNCHANGED FROM INTITAL ASSESSMENT. TR BAND REMOVED AND SITE WNL, NO OOZING OR SWELLING AT SITE. PT TO DIALYSIS APPOINTMENT AT THIS TIME.
== END 2025-05-18 17:15 | disposition home or self-care (01) ==
LOC: MHTC 08:50
PROVIDERS: Student in an Organized Health Care Education/Training Program
DX: I12.0 Hypertensive chronic kidney disease with stage 5 chronic kidney disease or end stage renal disease (principal); N18.6 End stage renal disease; Z88.1 Allergy status to other antibiotic agents; Z91.013 Allergy to seafood; Z91.048 Other nonmedicinal substance allergy status; Z79.899 Other long term (current) drug therapy
CPT/HCPCS: 36902; 37607; 76937; 80053; 85025; 85610; 99152; 99153; C1725; C1769; C1887; C1894; J0690; J1644; J2250; J3010; J7030; J7040; Q9967

== ENCOUNTER 2025-08-05 06:39 | Day surgery (SDC) | payer OTHER ==
[2025-08-05] VITALS (12 sets, daily range): BP systolic 116–141; BP diastolic 73–98
[~2025-08-05] VITALS: Ht 175.3 cm; Wt 128.6 kg
[~2025-08-05 06:39] MED LIST changes: +CINA30 PO; +CeFAZolin Sodium 2,000 MG in NS 100 ML IV SCH; +FURO40 PO; -FURO80 PO; +NS 500 ML IV SCH; +SEVEC800 PO
[2025-08-05] MEDS ORDERED: CeFAZolin Sodium 3,000 MG in NS 100 ML IV SCH (07:05)
--- NOTE | 2025-08-05 07:30 | NUR ---
AMBULATORY INTO SDS. HISTORY AND ALLERGIES REVIEWED. NO BP OR IV ON THE LEFT SIDE.BP ON FORTUNATO "MORE ACCURATE" PER PT.LUNGS CLEAR NO SOB-SATA>90% ON RA. PT TO HAVE DIAYLSIS LATER TODAY. [facility] CATH NOTED WITH DRESSING C/D/I. NPO STATUS CONFIRMED. PT WALLET AND CELL PHONE GIVEN TO HIS JOSE. PT CLOTHING PLACED IN BELONGINGS BAG BELOW THE GURNEY. JOSE IS PT RIDE HOME TODAY.
[2025-08-05] MEDS ORDERED: Bupivacaine 0.5% W/EPI 1:200000 SDV 30 ML Vial ONE (07:48)
[2025-08-05] MEDS ORDERED: Midazolam HCl 1MG / ML 2ML Vial ONE (07:56)
[2025-08-05] MEDS ORDERED: FentaNYL Citrate 50 MCG/ML 2 ML Injection ONE ×2 (07:56→08:35)
[2025-08-05] MEDS ORDERED: Dexamethasone Sod Phos 10 MG/ML 1ML VIAL ONE (08:07)
[2025-08-05] MEDS ORDERED: Phenylephrine HCl 100 MCG/ML-NS 10MLSYR (1MG/10ML) ONE (08:07)
[2025-08-05] MEDS ORDERED: Ondansetron HCl 2 MG / ML 2ML Vial ONE (08:07)
[2025-08-05] MEDS ORDERED: HYDROmorphone HCl/Pf 1MG SYR IV PRN ×2 (08:10)
[2025-08-05] MEDS ORDERED: FentaNYL Citrate 50 MCG/ML 2 ML Injection IV PRN ×2 (08:10)
[2025-08-05] MEDS ORDERED: Albuterol 2.5 MG/3 ML VIAL INH PRN (08:10)
[2025-08-05] MEDS ORDERED: Ondansetron HCl 2 MG / ML 2ML Vial IV PRN (08:15)
[2025-08-05] MEDS ORDERED: HYDROcodone 5-APAP 325 TAB PO PRN (10:05)
--- NOTE | 2025-08-05 12:20 | NUR ---
TO STEP POST PERITONEAL CATH REMOVAL. ABD INSCISIONS X 2 CDI WITH SURGICAL GLUE. MILD PAIN, NO NAUSEA, SOB. KURT PO WELL. SPOUSE AT BEDISDE. 25 MCG FENTANYL AND 1 NORCO GIVEN ORDERED. DRESSED AT BEDSIDE, DC'D IV INTACT. DC'D VIA WC TO PRIVATE CAR WITH SUPERVISOR MONEY ROOM.
== END 2025-08-05 10:45 | disposition home or self-care (01) ==
LOC: ORSCMMR 06:39 → ORD 08:00 → ORSCMMR 10:45
PROVIDERS: Surgery
PROC: 0WPG03Z Removal of Infusion Device from Peritoneal Cavity, Open Approach (ICD-10-PCS; principal; 2025-08-05 08:00)
DX: Z99.2 Dependence on renal dialysis (principal); K44.9 Diaphragmatic hernia without obstruction or gangrene; I12.9 Hypertensive chronic kidney disease with stage 1 through stage 4 chronic kidney disease, or unspecified chronic kidney disease; N18.30 Chronic kidney disease, stage 3 unspecified; N18.6 End stage renal disease; E78.5 Hyperlipidemia, unspecified; Z79.899 Other long term (current) drug therapy; Z68.41 Body mass index [BMI] 40.0-44.9, adult
CPT/HCPCS: 84132; A9270; J0690; J1100; J2250; J2371; J2405; J2704; J3010; J7030